=== PATIENT | female | born 1965 | race Asian ===

== ENCOUNTER 2018-01-22 09:45 | Emergency (ER) | payer OTHER ==
[~2018-01-22] VITALS: Ht 154.9 cm; Wt 46.3 kg
[2018-01-22 09:52] VITALS: Ht 154.9 cm; Wt 46.3 kg
[2018-01-22 10:26] LABS: UA SPECIFIC GRAVITY >=1.030 (1.005-1.035); microscopic required? YES; urine erythrocyte 1+ (NEGATIVE)
[2018-01-22 11:54] LABS: BASOPHIL % 0.7 % (0-2); RED CELL DISTRIBUTION WIDTH 13.9 % (11.5-14.5)
[2018-01-22 11:56] LABS: PLATELET COUNT 112 x10^3mcL (130-400)
[2018-01-22 12:36] LABS: CALCIUM 8.8 mg/dL (8.5-10.1); CARBON DIOXIDE 24.1 mmol/L (21-32); CHLORIDE SERUM 107 mmol/L (98-107); GFR1 > 60 mL/min; GLUCOSE SERUM 122 mg/dL (74-106); POTASSIUM SERUM 4.9 mmol/L (3.5-5.1); SODIUM SERUM 140 mmol/L (136-145)
[2018-01-22 12:43] LABS: ALBUMIN 3.5 g/dL (3.4-5.0); ALKALINE PHOSPHATASE 122 U/L (46-116); ALT/SGPT 69 U/L (14-59); AMYLASE 72 U/L (25-115); AST/SGOT 40 U/L (15-37); BILIRUBIN TOTAL 2.48 mg/dL (0.20-1.00); CHOLESTEROL 84 mg/dL (<200); HDL CHOLESTEROL 46 mg/dL (40-60); LIPASE 194 IU/L (73-393); MAGNESIUM 1.7 mg/dL (1.8-2.4)
[2018-01-22 15:49] VITALS: BP 112/34
== END 2018-01-22 15:50 | disposition home or self-care (01) ==
LOC: ED 09:45
PROVIDERS: Emergency Medicine
DX: R11.2 Nausea with vomiting, unspecified (principal); R10.9 Unspecified abdominal pain; T37.0X5A Adverse effect of sulfonamides, initial encounter; D69.6 Thrombocytopenia, unspecified; D64.9 Anemia, unspecified; R74.0 Nonspecific elevation of levels of transaminase and lactic acid dehydrogenase [LDH]; D89.9 Disorder involving the immune mechanism, unspecified; Z98.890 Other specified postprocedural states; Y92.89 Other specified places as the place of occurrence of the external cause
CPT/HCPCS: 82962; 83880; J2405; J3490; J7030; Q0092